=== PATIENT | female | born 1990 | race Caucasian/White ===

== ENCOUNTER 2021-03-23 13:06 | Emergency (ER) | payer BC ==
[~2021-03-23] VITALS: Ht 157 cm; Wt 63.5 kg
--- OUTSIDE RECORDS SUMMARY | 2021-03-23 13:10 | XMS REPORT | Continuity of Care Document ---
Author Author [facility] Organization [facility] Address [address] [place] [address] Phone Care Team Providers Care Flight Engineer Instructor Name Role Phone Yanci Correia Attphys Yanci Correia Rndphys Chief Complaint and Reason for Visit Chief Complaint covid symptoms/Test Health Concerns Health concerns may be documented in an alternate section Allergies, Adverse Reactions, Alerts No known allergies Social History Smoking Status Status Start Date End Da te Date of Observation Unknown if ever smoked June 28, 2020 5:08pm Additional Data Assigned Sex Female Problems No problem information available Medications No known medications Immunizations No immunization information available Medical Equipment No implantable device information available Procedures No procedure information available Relevant Diagnostic Tests and/or Laboratory Data Laboratory Results Test Date/Time Result Interpretation Reference Range Result Comment Performing Site POC SARS CoV-2 Antigen January 3:26pm Negative Negative This test has been authorized (by the FDA) for use in patient testing by CLIA certified laboratories under an FDA Emergency Use Authorization (EUA). The test has not been formally approved by the FDA. This test has been validated by the unit assistant ([employer]) but the FDA's independent review of this validation is pending. Negative results indicate That antigens from SARS-CoV-2 wer not present in the specimen above the limit of detection. A negative result does not rule out COVID-19 and should not be used as the sole basis for treatment or patient management decisions, including infection control decisions. Antigen tests are known to be less sensitive than molecular test that detect viral nucleic acids. The amoun of antigen in a sample may decrease as the duration of illness increases. Specimens collected after day 7 of illness may be more likely to be negative compared to a RT-PCR assay. [facility] [address] [place] [id number] Vital Signs Vital Reading Result Ref erence Range Collection Date/Time Height 62 [in_i] January 22, 2021 3:10pm Weight 63.50 kg January 22, 2021 3:10pm BMI (Body Mass Index) 25.6 kg/m2 January 22, 2021 3:10pm Insurance Providers Guarantor Mary Alice Bailey Address [address] [place] [address] Contact Info. Home Phone: Payer Policy Id Coverage Id Subscriber's Name Subscriber Id Effective Date Expiration Date Blue [employer] Other OUT OF STATE [id number] Mary Alice Bailey [id number] Self Pay Self N/A Encounters Encounter Location(s) Ar rival/Admit Date Discharge/Depart Date Provider(s) Departed Physician/Provider Office Visit [facility] January 22, 2021 2:38pm January 22, 2021 3:56pm Dano Correia APRN Functional Status No functional status information available Mental Status No mental status information available Assessments No assessment information available Plan of Treatment Plan of treatment may be documented in an alternate section Goals Goals may be documented in an alternate section
--- OUTSIDE RECORDS SUMMARY | 2021-03-23 13:10 | XMS REPORT | Continuity of Care Document ---
Author Author [facility] Organization [facility] Address [address] [place] [address] Phone Care Team Providers Care Yarn Weigher Name Role Phone Yanci Correia Attphys Yanci [...] This test has been validated by the plant safety leader ([employer]) but the FDA's independent review of this [...] be negative compared to a RT-PCR assay. [facility] [address] [place] [id number] Vital Signs Vital Reading Result Ref erence Range Collection Date/Time Height 62 [in_i] January 22, 2021 3:10pm Weight 63.50 kg January 22, 2021 3:10pm BMI (Body Mass Index) 25.6 kg/m2 January 22, 2021 3:10pm Insurance Providers Guarantor Mary Alice Bailey Address [address] [place] [address] Contact Info. Home Phone: Payer Policy Id Coverage Id Subscriber's Name Subscriber Id Effective Date Expiration Date Blue [employer] Other OUT OF STATE [id number] Mary Alice Bailey [id number] Self Pay Self N/A Encounters Encounter Location(s) Ar rival/Admit Date Discharge/Depart Date Provider(s) Departed Physician/Provider Office Visit [facility] January 22, 2021 2:38pm January 22, 2021 3:56pm Dano Correia APRN Functional Status No functional status information available Mental Status No mental status information available Assessments No assessment information available Plan of Treatment Plan of treatment may be documented in an alternate section Goals Goals may be documented in an alternate section
--- NOTE | 2021-03-23 13:28 | ED Neck-Back Pain/Injury ---
General Stated Complaint: NECK SPASMS Source of Information: Patient Exam Limitations: No Limitations History of Present Illness Date Seen by Provider: Mar 23, 2021 Time Seen by Provider: 13:18 Initial Comments Patient is a 30-year-old female who presents to the emergency department today with a chief complaint of neck pain, more right-sided than midline. Patient states that she woke up on morning of last week with a neck ache. She has been taking Aleve [id number] 1 twice daily. She is actually had to this morning without any relief of symptoms. Patient states this morning the neck pain is significantly worsened and every time she moves she states she gets a "spasm" to the right side of her neck. She states it has made her arm feel "tingly". She denies any decreased strength in the right arm. No report of trauma or recent heavy lifting. No car accidents. She has not had fevers, chills, earache, sore throat cough or congestion. All other review of systems reviewed and negative except as stated. Location: Paraspinous Muscles (cervical spine) Timing/Duration: 2-3 Days Severity: Moderate Pain/Injury Location: Neck (right anterior neck) Radiation: Other (right arm) Modifying Factors: Improves With Immobilization Associated Symptoms: muscle spasms Allergies and Home Medications Allergies Coded Allergies: No Known Drug Allergies (Unverified , 03/23/21) Patient Home Medication List Home Medication List Reviewed: Yes Cyclobenzaprine HCl (Cyclobenzaprine HCl) 10 Mg Tablet, 10 MG PO Q8H PRN for SPASMS Prescribed by: SALVADOR TA on 03/23/21 1341 Hydrocodone/Acetaminophen (Hydrocodone-Acetamin 5-325 mg) 1 Each Tablet, 1 TAB PO Q6H PRN for PAIN-MODERATE (5-7) Prescribed by: SALVADOR TA on 03/23/21 1419 Prednisone (Prednisone) 50 Mg Tab, 50 MG PO DAILY Prescribed by: SALVADOR TA on 03/23/21 1341 Review of Systems Constitutional: see HPI EENTM: no symptoms reported Respiratory: no symptoms reported Cardiovascular: no symptoms reported Gastrointestinal: no symptoms reported Genitourinary: no symptoms reported : No LMP: Mar 14, 2021 Control/STD Prophylaxis: Other (implant) Musculoskeletal: muscle pain (right anterior neck), neck pain Skin: no symptoms reported All Other Systems Reviewed Negative Unless Noted: Yes Physical Exam Vital Signs Vital Signs - First Documented 03/23/21 13:20 Temp 36.7 Pulse 73 Resp 16 B/P (MAP) 136/87 (103) Pulse Ox 98 O2 Delivery Room Air Capillary Refill : Height, Weight, BMI Height: '" Weight: lbs. oz. kg; BMI Method: General Appearance: No Apparent Distress, WD/WN HEENT: PERRL/EOMI Neck: Limited Range of Motion (to forward flexion and rotation. Very tender to palpation along the right SCM; no overlying erythema, no swelling; no masses; some tenderness to the paraspinous muscles of the cervical spine more on the right lower.) Cardiovascular: Regular Rate, Rhythm Respiratory: Lungs Clear, Normal Breath Sounds, No Accessory Muscle Use, No Respiratory Distress Back: Other (no midline point tenderness over the cervical spine or upper thoracic spine; no tenderness around the right scapula) Extremity: Normal Capillary Refill, Normal Inspection, Other (patient has discomfort with ROM of the right shoulder - especially with forward flexion, extension of the right arm; pulses intact in all ROM to the RUE; normal strength to the RUE, good top inventory control executive) Neurologic/Psychiatric: Alert, Oriented x3, No Motor/Sensory Deficits Skin: Normal Color, Warm/Dry Lymphatic: No Adenopathy Progress/Results/Core Measures Results/Orders My Orders Orders - SALVADOR TA MD Ketorolac Injection (Toradol Injection) (03/23/21 13:30) Orphenadrine Inj (Ed Only) (Norflex Inje (03/23/21 13:30) Hydrocodone/Apap 5/325 Tablet (Lortab 5 (03/23/21 14:30) Medications Given in ED Vital Signs/I&O 03/23/21 03/23/21 13:20 14:27 Temp 36.7 36.7 Pulse 73 73 Resp 16 16 B/P (MAP) 136/87 (103) 112/76 Pulse Ox 98 98 O2 Delivery Room Air Room Air Progress Progress Note : Time: 14:18 Progress Note Patient states muscle relaxer and Toradol did not really help much. She has been trying to do little gentle range of motion but still has "spasms" on the right side. We will follow the Toradol and Norflex with a small dose of hydrocodone. Patient states that she has a heating pad in the car. Return precautions given. Departure Impression Primary Impression: Tortbarllis, acute Disposition: 01 HOME, SELF-CARE Condition: Stable Departure-Patient Inst. Decision time for Depature: 13:39 Referrals: NO,LOCAL PHYSICIAN (PCP/Family) Primary Care Physician Patient Instructions: Torticollis, Adult Add. Discharge Instructions: You can use a heating pad to the sore muscles of the right side of your neck, this will help relieve some spasm. Tylenol extra strength, 2 tablets every 6 hours for pain. I have sent a prescription for prednisone which is a powerful anti-inflammatory as well as muscle relaxers to [facility] for you. You can take the Flexeril every 8 hours, it may make you little sleepy. Return to the emergency room for reevaluation if you have any worsening neck pain especially with weakness of the right arm, numbness or any other emergent concerning symptoms. Follow-up with your primary care doctor as needed. Scripts Hydrocodone/Acetaminophen (Hydrocodone-Acetamin 5-325 mg) 1 Each Tablet 1 TAB PO Q6H PRN for PAIN-MODERATE (5-7), #8 TAB Prov: SALVADOR TA MD 03/23/21 Cyclobenzaprine HCl (Cyclobenzaprine HCl) 10 Mg Tablet 10 MG PO Q8H PRN for SPASMS, #12 TAB 0 Refills Prov: SALVADOR TA MD 03/23/21 Prednisone (Prednisone) 50 Mg Tab 50 MG PO DAILY, #3 TAB Prov: SALVADOR TA MD 03/23/21 SALVADOR TA MD Mar 23, 2021 13:28
[2021-03-23] MEDS ORDERED: KETOROLAC 30 MG/ML VIAL IM ONE (13:30)
[2021-03-23] MEDS ORDERED: ORPHENADRINE 60 MG/2 ML (NORFLEX) AMP (ED ONLY) IM ONE (13:30)
[2021-03-23] MEDS ORDERED: PRD50T PO (13:41)
[2021-03-23] MEDS ORDERED: CYCL10TA9 PO (13:41)
[2021-03-23] MEDS ORDERED: ACHD5005 PO (14:19)
[2021-03-23 14:27] VITALS: BP 112/76
[2021-03-23] MEDS ORDERED: HYDROcodone/APAP 5 MG/325 MG (LORTAB) TAB PO ONE (14:30)
== END 2021-03-23 14:27 | disposition home or self-care (01) ==
LOC: EDUNIT# 13:06 → ER 13:08
DX: M43.6 Torticollis (principal)
CPT/HCPCS: 99284